=== PATIENT | male | born 1990 | race Caucasian/White ===

== ENCOUNTER 2018-12-12 07:28 | Emergency (ER) | payer OTHER ==
[~2018-12-12] VITALS: Ht 175.3 cm; Wt 70.0 kg
[2018-12-12] MEDS ORDERED: SODIUM CHLORIDE FLUSH 10ML SYR IVF ONE (08:00)
[2018-12-12 08:13] LABS: BASOPHILS # (AUTO) 0.03 x10^3/uL (0-0.1); BASOPHILS % (AUTO) 1 % (0-1); EOSINOPHILS # (AUTO) 0.15 x10^3/uL (0-0.4); EOSINOPHILS % (AUTO) 2 % (1-7); LYMPHOCYTES # (AUTO) 1.94 x10^3/uL (1-3.4); LYMPHOCYTES % (AUTO) 31 % (22-44); MD NO; MEAN CORPUSCULAR HEMOGLOBIN 30.7 pg (27.5-34.5); MEAN CORPUSCULAR HGB CONC 33.5 g/dL (33.2-36.2); MEAN CORPUSCULAR VOLUME 91.6 fL (81-97); MEAN PLATELET VOLUME 7.5 fL (7.4-10.4); MONOCYTES # (AUTO) 0.57 x10^3/uL (0.2-0.8); MONOCYTES % (AUTO) 9 % (2-9); NEUTROPHILS # (AUTO) 3.56 x10^3/uL (1.8-6.8); NEUTROPHILS % (AUTO) 57 % (42-75); PLATELET COUNT 230 x10^3/uL (130-400); RED CELL DISTRIBUTION WIDTH 12.9 % (9.4-14.8)
--- NOTE | 2018-12-12 08:20 | NUR ---
ROLANDO SHAHID. RECEIVED REPORT FROM VELASQUEZ SHAHID. CARE ASSUMED FOR BREAK. PT RESTING IN POSITION OF COMFORT. DENIES ANY PAIN OR NEED TO USE RESTROOM. ALL NEEDS MET AND ADDRESSED. AWAITING CT. VSS. A&OX4. CALL LIGHT IN REACH. FALL PRECAUTIONS IN PLACE.
[2018-12-12 08:26] LABS: ALBUMIN 4.1 g/dL (3.4-5.0); ANION GAP 7 mmol/L (5-15); CALCIUM 8.9 mg/dL (8.5-10.1); CHLORIDE 110 mmol/L (98-107)
[2018-12-12 08:29] LABS: ALANINE AMINOTRANSFERASE 25 U/L (12-78); ALKALINE PHOSPHATASE 69 U/L (45-117); BILIRUBIN,TOTAL 0.9 mg/dL (0.2-1.0); CREATININE 0.91 mg/dL (0.7-1.3); TOTAL PROTEIN 7.2 g/dL (6.4-8.2)
--- NOTE | 2018-12-12 08:31 | NUR ---
REPORT AND CARE BACK TO PRIMARY [facility] AT THIS TIME
[2018-12-12] MEDS ORDERED: OMNIPAQUE 350 MG/ML, 100ML BOTTLE ONE (09:15)
[2018-12-12 09:58] VITALS: BP 115/71
== END 2018-12-12 10:01 | disposition home or self-care (01) ==
LOC: ED 08:40
DX: K92.2 Gastrointestinal hemorrhage, unspecified (principal)
CPT/HCPCS: 36415; 74177; 80053; 85025; 99284; Q9967

== ENCOUNTER 2019-06-07 00:45 | Emergency (ER) | payer SELFPAY ==
[~2019-06-07] VITALS: Ht 175.3 cm; Wt 73.9 kg
[2019-06-07 00:53] VITALS: BP 113/67
--- NOTE | 2019-06-07 01:45 | NUR ---
pt called to room from lobby- not here
--- NOTE | 2019-06-07 02:00 | NUR ---
pt not in lobby
--- NOTE | 2019-06-07 02:10 | NUR ---
not in lobby
== END 2019-06-07 02:13 | disposition left against medical advice (07) ==
LOC: ED 02:07
DX: R07.9 Chest pain, unspecified (principal); Z53.21 Procedure and treatment not carried out due to patient leaving prior to being seen by health care provider
CPT/HCPCS: 93005

== ENCOUNTER 2021-01-05 14:45 | Emergency (ER) | payer SELFPAY ==
[~2021-01-05] VITALS: Ht 175.3 cm; Wt 71.3 kg
[2021-01-05 14:58] VITALS: BP 122/73
== END 2021-01-05 16:36 | disposition home or self-care (01) ==
LOC: ED 16:00
DX: R07.89 Other chest pain (principal); R94.31 Abnormal electrocardiogram [ECG] [EKG]
CPT/HCPCS: 93005; 99283